=== PATIENT | female | born 1940 | race Caucasian/White ===

== ENCOUNTER → 2018-05-03 | Outpatient (CLI) | payer MEDICARE, BC ==
--- NOTE | 2018-05-03 11:08 | FL ---
EXAMINATION TYPE: FL barium swallow DATE OF EXAM: 05/03/2018 CLINICAL HISTORY: Hoarseness and gastroesophageal reflux. TECHNIQUE: A double contrast esophagram is performed utilizing air and barium. A total of 1 minute and 59 seconds of fluoroscopic time was utilized during procedure. 35 fluoroscopic images were saved. COMPARISON: None FINDINGS: The esophagus shows normal motility and emptying into the stomach in the gravity dependent portion of examination however tertiary contractions are seen in the gravity independent portion of t he examination. No evidence of hiatal hernia or stricture noted. Unprovoked severe gastroesophageal reflux was seen to the cervical esophagus on multiple occasions without the Valsalva maneuver. This i s seen on both the gravity dependent and independent portions of the examination. IMPRESSION: 1. Severe spontaneous gastroesophageal reflux without utilizing the Valsalva maneuver. No focal stric ture or obstruction. 2. 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
[2018-05-03 17:35] LABS: Thyroid Peroxidase Antibodies 928.6 U/mL (0.0-60.0)
== END | disposition home or self-care (01) ==
LOC: RADFLWHC 09:07
PROVIDERS: ATTEND Otolaryngology
DX: K21.9 Gastro-esophageal reflux disease without esophagitis (principal); E04.1 Nontoxic single thyroid nodule; K11.7 Disturbances of salivary secretion
CPT/HCPCS: 36415; 74220; 86235; 86376

== ENCOUNTER 2018-05-14 10:06 | Day surgery (SDC) | payer MEDICARE, BC ==
[2018-05-12 11:42] VITALS: BMI 22.5
[~2018-05-14 10:06] MED LIST: LACTATED RINGERS 1,000 ML IV SCH; LIDOCAINE 1% 20 ML VIAL (10MG/ML) FOR IV START INTRADERMA PRN; MIDAZOLAM 2 MG/2 ML VIAL IV PRN
[2018-05-14 11:32] VITALS: RESP 16; TEMP 97.7
[2018-05-14] MEDS ORDERED: PROPOFOL 10 MG/ML 20 ML VIAL IV ONE (12:19)
--- NOTE | 2018-05-14 12:37 | P.PCN ---
Date of Procedure: 05/14/18 Procedure(s) Performed: BRIEF HISTORY: Patient is a 78-year-old pleasant white female scheduled for an elective colonoscopy as a part of screening for colorectal neoplasia. PROCEDURE PERFORMED: Colonoscopy. PREOPERATIVE DIAGNOSIS: Screening for colon cancer. IV sedation per Anesthesia. PROCEDURE: After informed consent was obtained, the patient, was brought into the endoscopy unit. IV sedation was administered by Anesthesia under continuous monitoring. Digital rectal examination was normal. Initially the Olympus CF- 160 flexible video colonoscope was then inserted in the rectum, gradually advanced into the cecum without any difficulty. Careful examination was performed as the scope was gradually being withdrawn. Ileocecal valve and the appendiceal orifice were visualized and appeared normal. Prep was excellent. Mucosa of the cecum, ascending colon, transverse colon, descending colon, sigmoid colon, and rectum appeared normal. Scattered sigmoid diverticulosis seen. Retroflexion was performed in the rectum and no lesions were seen. The patient tolerated the procedure well. IMPRESSION: Normal-appearing colon from rectum to cecum with no evidence of colorectal neoplasia . Scattered sigmoid diverticulosis. RECOMMENDATIONS: Findings of this examination were discussed with the patient as well as her family. She was advised to be a high-fiber diet and take fiber supplements on a regular basis..
[2018-05-14 12:57] VITALS: BP 136/76; PULSE 74
== END 2018-05-14 14:01 | disposition home or self-care (01) ==
LOC: ORWHC2ENDO 10:06
PROVIDERS: ATTEND Internal Medicine Gastroenterology
DX: Z12.11 Encounter for screening for malignant neoplasm of colon (principal); K57.30 Diverticulosis of large intestine without perforation or abscess without bleeding; Z79.890 Hormone replacement therapy; Z79.899 Other long term (current) drug therapy; Z91.09 Other allergy status, other than to drugs and biological substances
CPT/HCPCS: J2704; G0121; 45378

== ENCOUNTER 2018-11-03 08:49 | Day surgery (SDC) | payer MEDICARE, BC ==
[2018-11-02 09:26] VITALS: BMI 20.3
[~2018-11-03 08:49] MED LIST changes: -MIDAZOLAM 2 MG/2 ML VIAL IV PRN
[2018-11-03 09:27] VITALS: TEMP 98.4
[2018-11-03] MEDS ORDERED: PROPOFOL 10 MG/ML 20 ML VIAL IV ONE (10:18)
--- NOTE | 2018-11-03 10:37 | P.PCN ---
Date of Procedure: 11/03/18 Procedure(s) Performed: BRIEF HISTORY: Patient is a 78-year-old, pleasant, white white female, scheduled for an upper endoscopy as a part of value should of progressive dysphagia to solids for the last 6 months duration. She feels food gets stuck in her throat area. She has been on soft diet. She denies any odynophagia. In view of the symptoms she is scheduled for an upper endoscopy with possible dilation. PROCEDURE PERFORMED: Esophagogastroduodenoscopy with biopsy. PREOPERATIVE DIAGNOSIS: Progressive dysphagia to solids of 6 months duration. IV sedation per anesthesia. PROCEDURE: After informed consent was obtained, the patient was brought into the endoscopy unit. IV sedation was administered by Anesthesia under continuous monitoring. Initially the Olympus GIF-140 video endoscope was inserted into the mouth. Esophagus intubated without any difficulty. It was gradually advanced into the stomach and duodenum and carefully examined. The bulb and the second part of the duodenum appeared normal. The scope at this time was withdrawn to the stomach, adequately insufflated with air, and upon careful examination, mucosa of the antrum had mild gastritis and biopsies were done from this area. The body, cardia and the fundus appeared normal. The scope was then withdrawn into the esophagus. Small sliding Hiatal hernia noted. The GE junction was located at 39 cm from the incisors. The esophagus appeared normal. There were no erosions or ulcerations seen . There was no esophageal stricture. Biopsies were done from the distal esophagus and the patient tolerated the procedure well. IMPRESSION: 1. Normal-appearing esophagus with no evidence of esophagitis or esophageal stricture. 2. Mild antral gastritis 3. Small sliding Hiatal hernia. RECOMMENDATIONS: The findings of this examination were discussed with the patient as well as her family. She was advised to follow with the biopsy results. 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 Recommended a trial of Prilosec 20 mg daily for 6 weeks to see for any improvement in her symptoms. If she still has persistent dysphagia she can follow up in office for further workup including esophageal manometry to rule out esophageal motility disorders. .
[2018-11-03 10:52] VITALS: BP 150/74; PULSE 74; RESP 18
== END 2018-11-03 11:17 | disposition home or self-care (01) ==
LOC: ORWHC2ENDO 08:49
PROVIDERS: ATTEND Internal Medicine Gastroenterology
DX: R13.10 Dysphagia, unspecified (principal); K29.50 Unspecified chronic gastritis without bleeding; K21.9 Gastro-esophageal reflux disease without esophagitis; K44.9 Diaphragmatic hernia without obstruction or gangrene; E07.9 Disorder of thyroid, unspecified; Z79.1 Long term (current) use of non-steroidal anti-inflammatories (NSAID); Z79.890 Hormone replacement therapy; Z79.899 Other long term (current) drug therapy; Z88.8 Allergy status to other drugs, medicaments and biological substances
CPT/HCPCS: 88305; 43239; J2704

== ENCOUNTER 2020-03-30 20:30 | Inpatient (IN) | payer MEDICARE, BC ==
--- NOTE | 2020-03-30 20:47 | ED ---
SOB HPI - General Chief Complaint: Shortness of Breath Stated Complaint: SOB Time Seen by Provider: 03/30/20 20:32 Source: patient, EMS, RN notes reviewed, old records reviewed Mode of arrival: EMS Limitations: no limitations - History of Present Illness Initial Comments: This is a 79-year-old female DF she presents today for evaluation of CHF, patient sent in transfer for shortness of breath elevated BNP troponin edema and x-ray patient continues to complain of shortness of breath although improved currently. No chest pain. She denies prior history of having CHF is a diagnosis patient says symptoms about and off for the past month of some chest pain and shocks earlier into today MD Complaint: shortness of breath, anxiety -: month(s) Severity: mild Severity scale (1-10): 3 Consistency: intermittent Improves With: nothing Worsens With: nothing Known History Of: congestive heart failure Associated Symptoms: chest pain (Occasional), palpitations Treatments Prior to Arrival: none - Related Data Home Medications Medication Instructions Recorded Confirmed Kelp 1 each PO BID 12/27/14 11/02/18 Levothyroxine Sodium [Synthroid] 125 mcg PO DAILY 12/27/14 11/03/18 Vitamin E 400 unit PO BID 12/27/14 11/03/18 Ascorbic Acid [Vitamin C] 1,000 mg PO DAILY 11/02/18 11/02/18 Celecoxib [CeleBREX] 200 mg PO DAILY PRN 11/02/18 11/03/18 Docusate [Colace] 100 mg PO DAILY 11/02/18 11/03/18 Fish Oil/Dha/Epa [Fish Oil 1,200 1 each PO BID 11/02/18 11/02/18 mg Fish Oil] Glucosamine Sulfate 1,500 mg PO BID 11/02/18 11/03/18 Magnesium With Zinc 1 dose PO DAILY 11/02/18 11/03/18 Omeprazole 20 mg PO TID-W/MEALS 11/02/18 11/03/18 Pyridoxine [Vitamin B-6] 50 mg PO DAILY 11/02/18 11/02/18 Vitamin D 1.25 dose PO DAILY 11/02/18 11/02/18 Allergies Allergy/AdvReac Type Severity Reaction Status Date / Time niacin Allergy Anaphylaxis Verified 11/02/18 08:59 Review of Systems ROS Statement: Those systems with pertinent positive or pertinent negative responses have been documented in the HPI. ROS Other: All systems not noted in ROS Statement are negative. Past Medical History Past Medical History: GERD/Reflux, Osteoarthritis (OA), Thyroid Disorder Additional Past Medical History / Comment(s): BALANCE PROBLEM, CHRONIC CONSTIPATION., ANIMAL FREE DIET- NO MEAT OR DAIRY.,HOARSE VOICE- STATES FEELS LIKE THROAT IS SWOLLEN. History of Any Multi-Drug Resistant Organisms: None Reported Past Surgical History: Back Surgery, Orthopedic Surgery Additional Past Surgical History / Comment(s): BACK SURGERY (), NECK SURGERY (), BILATERAL SHOULDER SURGERY X2, past tilt table test Past Anesthesia/Blood Transfusion Reactions: No Reported Reaction Past Psychological History: Anxiety, Depression Smoking Status: Never smoker Past Alcohol Use History: None Reported Past Drug Use History: None Reported - Past Family History Mother Family Medical History: Coronary Artery Disease (CAD) Additional Family Medical History / Comment(s): -constricted bowel problem Father Family Medical History: Cancer, Myocardial Infarction ([place]) Additional Family Medical History / Comment(s): lung cancer. from "heart attack" General Exam General appearance: alert, in no apparent distress Head exam: Present: atraumatic, normocephalic, normal inspection Eye exam: Present: normal appearance, PERRL, EOMI. Absent: scleral icterus, conjunctival injection, periorbital swelling ENT exam: Present: normal exam, mucous membranes moist Neck exam: Present: normal inspection. Absent: tenderness, meningismus, lymphadenopathy Respiratory exam: Present: rhonchi, decreased breath sounds, prolonged expiratory. Absent: normal lung sounds bilaterally, respiratory distress, wheezes, rales, stridor Cardiovascular Exam: Present: regular rate, normal rhythm, normal heart sounds. Absent: systolic murmur, diastolic murmur, rubs, gallop, clicks GI/Abdominal exam: Present: soft, normal bowel sounds. Absent: distended, tenderness, guarding, rebound, rigid Extremities exam: Present: normal inspection, full ROM, normal capillary refill. Absent: tenderness, pedal edema, joint swelling, calf tenderness Back exam: Present: normal inspection Neurological exam: Present: alert, oriented X3, CN II-XII intact Psychiatric exam: Present: normal affect, normal mood Skin exam: Present: warm, dry, intact, normal color. Absent: rash Course Vital Signs 03/30/20 03/30/20 20:37 20:46 Temperature 98.1 F Pulse Rate 87 Respiratory 16 16 Rate Blood Pressure 144/85 O2 Sat by Pulse 96 Oximetry - Reevaluation(s) Reevaluation #1: 03/30/20 21:00 Medical record transferring record is reviewed - Consultations Consultation #1: Spoke with Dr. Dale agrees for admission Medical Decision Making - Medical Decision Making 79 female female to the ER for evaluation of CHF and chest pain. New-onset CHF was found at outside hospital, patient is in no acute distress currently. Denying current chest pain and resting comfortably - EKG Data -: EKG Interpreted by Me (EKG shows a flutter rate of 52, QRS 94 QTC 399) Disposition Clinical Impression: Congestive heart failure, Acute pulmonary edema, Chest pain Disposition: ADMITTED IP TO THIS HOSP Condition: Good Is patient prescribed a controlled substance at d/c from ED?: No Referrals: Pooja Bob MD [Primary Care Provider] - 1-2 days
[2020-03-30] MEDS: FUROSEMIDE 10 MG/ML 4 ML VIAL IV SCH (21:42)
[2020-03-30] MEDS ORDERED: ONDANSETRON 4 MG/2 ML VIAL IVP PRN (21:49)
[2020-03-30] MEDS ORDERED: MORPHINE SULFATE 4 MG/ML SYRINGE IVP PRN (21:49)
[2020-03-30] MEDS ORDERED: ONDANSETRON 4 MG/2 ML VIAL IVP STA (21:49)
[2020-03-30] MEDS ORDERED: MORPHINE SULFATE 4 MG/ML SYRINGE IVP STA (21:49)
[2020-03-31] MEDS: FUROSEMIDE 10 MG/ML 4 ML VIAL IV SCH (08:42)
[2020-03-31] MEDS ORDERED: ENOXAPARIN 40 MG/0.4 ML SYRINGE SQ SCH (09:00)
[2020-03-31] MEDS ORDERED: ACETAMINOPHEN TAB 325 MG TAB PO PRN (09:22)
--- NOTE | 2020-03-31 10:12 | P.CRDCN ---
History of Present Illness Consult date: 03/31/20 Consult reason: congestive heart failure History of present illness: History of present illness: This is a 79-year-old female patient with past medical history of newly diagnosed atrial fibrillation, gastroesophageal reflux disease, vertigo, osteoarthritis. The patient was previously seen by Dr. 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 Florinef was recommended as well as dual-chamber atrial pacer. Patient states she declined use of Florinef and utilized sodium and it was subsequently determined the patient did not need a pacemaker implantation. Patient was seen by Dr. Matson on Thursday last week and started on eliquis and beta stevan for new onset atrial fibrillation. Patient developed lightheadedness and dizziness with intermittent shortness of breath. No syncopal episode. No orthopnea or PND. Patient contacted cardiology office and was recommended to go to the emergency center for evaluation. Patient initially presented to [facility] where she underwent a CAT scan of brain that showed no acute intracranial abnormality. Chest x-ray showed no pneumo thorax, no acute infiltrate, no significant pleural effusion. Troponin was 0.012. Hemoglobin 13.9 and platelet count 149 otherwise metabolic panel essentially normal. Magnesium 2.0, phosphorus 3.7. ProBNP 2320. Urinalysis negative for infection. She was given 1 dose of Reglan. She was started on IV fluids and there is concern the patient had elevated BNP and was in heart failure as she presented with a pulse ox of 88% on room air with repeat of 98% on 2 L nasal cannula. Patient was complaining of headache and nausea and took a dose of Benadryl. Patient was then transferred to [facility]. Patient is status post IV Lasix. She states she did have some lower extremity edema which is resolved. Patient's main concern is a headache which she has had prolonged period of time and had previous workup with Dr. Marily Dye and referred to Dr. Jasson Park. Dr. Jasson Rendon wanted her to go to [facility] but she did not want to do further workup. Patient has had worsening headache for the past month and significantly worse this week along with nausea. Review Of Systems: Constitutional: No fever, no chills. No weakness, fatigue or lethargy. EENT: No blurred vision or double vision, no loss of vision. No loss of Hearing, no dizziness. No nasal drainage or congestion. No epistaxis. No sore throat. Reports headache Lungs: No shortness of breath-resolved, cough, no sputum production. No wheezing. Cardiovascular: No chest pain, no lower extremity edema-resolved. No palpitations. No paroxysmal nocturnal dyspnea. No orthopnea. No lightheadedness or dizziness. No syncopal episodes. Abdominal: No abdominal pain. Reports nausea without vomiting. No diarrhea. No constipation. No bloody or tarry stools.. No loss of appetite. Genitourinary: No dysuria, increased frequency, urgency. No urinary retention. Musculoskeletal: No myalgias. No muscle weakness, no gait dysfunction, no frequent falls. No back pain. No neck pain. Integumentary: No wounds, no lesions. No rash or pruritus. No unusual bruising. Neurologic: No aphasia. No facial droop. No change in mentation. No head injury. No headache. No paralysis. No paresthesia. Psychiatric: No depression. No anxiety. No mood swings. Endocrine: No abnormal blood sugars. No weight change. No excessive sweating or thirst. No weight change. Physical examination: Gen: This is a thin 79-year-old female. She is sitting on the edge of the bed and appears to be comfortable and in no acute distress. VS: Afebrile, heart rate 63, blood pressure 133/86, pulse ox 97% on room air HEENT: Head is atraumatic, normocephalic. Pupils equal, round. Sclerae is anicteric. NECK: Supple. No JVD. No lymphadenopathy. No thyromegaly. LUNGS: Clear to auscultation. No wheezes or rhonchi. No intercostal retractions. HEART: Regular rate and rhythm. No murmur. ABDOMEN: Soft. Bowel sounds are present. No masses. No tenderness. EXTREMITIES: No pedal edema. No calf tenderness. Dorsalis pedis +2 bilaterally. NEUROLOGICAL: Patient is awake, alert and oriented x3. Cranial nerves 2 through 12 are grossly intact. Assessment: Shortness of breath rule out cardiac etiology Evaluate for possible heart failure New diagnosis of atrial fibrillation, rate controlled Headache and nausea, chronic Gastroesophageal reflux disease Plan: Hold metoprolol for now as patient heart rate of 49 during the night Patient will be resumed on eliquis 5 mg twice daily and discontinue Lovenox Repeat troponin and obtain the following lab work: D-dimer, CMP, CBC, BNP, TSH and free T4 Echocardiogram and Doppler studies to assess cardiac structure and function Low-dose [place] added for headache Further recommendations to follow based upon clinical course Thank you kindly for this consultation Nurse practitioner note has been reviewed, I agree with documented findings and plan of care. Patient was seen and examined. Past Medical History Past Medical History: GERD/Reflux, Osteoarthritis (OA), Thyroid Disorder Additional Past Medical History / Comment(s): BALANCE PROBLEM, CHRONIC CONSTIPATION., ANIMAL FREE DIET- NO MEAT OR DAIRY.,HOARSE VOICE- STATES FEELS LIKE THROAT IS SWOLLEN. History of Any Multi-Drug Resistant Organisms: None Reported Past Surgical History: Back Surgery, Orthopedic Surgery Additional Past Surgical History / Comment(s): BACK SURGERY (), NECK SURGERY (), BILATERAL SHOULDER SURGERY X2, past tilt table test Past Anesthesia/Blood Transfusion Reactions: No Reported Reaction Past Psychological History: Anxiety, Depression Smoking Status: Never smoker Past Alcohol Use History: None Reported Past Drug Use History: None Reported - Past Family History Mother Family Medical History: Coronary Artery Disease (CAD) Additional Family Medical History / Comment(s): -constricted bowel problem Father Family Medical History: Cancer, Myocardial Infarction ([place]) Additional Family Medical History / Comment(s): lung cancer. from "heart attack" Medications and Allergies Home Medications Medication Instructions Recorded Confirmed Type Kelp 1 tab PO BID 12/27/14 03/30/20 History Celecoxib [CeleBREX] 200 mg PO DAILY PRN 11/02/18 03/30/20 History Pyridoxine [Vitamin B-6] 50 mg PO Q48H 11/02/18 03/30/20 History ALPRAZolam [Xanax] 0.125 mg PO DAILY PRN 03/30/20 03/30/20 History ALPRAZolam [Xanax] 0.25 mg PO HS PRN 03/30/20 03/30/20 History Apixaban [Eliquis] 5 mg PO BID 03/30/20 03/30/20 History Biotin 5 mg PO DAILY 03/30/20 03/30/20 History Escitalopram [Lexapro] 10 mg PO DAILY 03/30/20 03/30/20 History Levothyroxine Sodium 125 mcg PO DAILY 03/30/20 03/30/20 History Magnesium(Unknown Dose) 1 tab PO DAILY 03/30/20 03/30/20 History Metoprolol Succinate (ER) [Toprol 50 mg PO DAILY 03/30/20 03/30/20 History Xl] Potassium Gluconate 99 mg PO DAILY 03/30/20 03/30/20 History Vitamin A 2400mg 2,400 mg PO DAILY 03/30/20 03/30/20 History Vitamin B-12(Unknown Dose) 1 tab PO Q48H 03/30/20 03/30/20 History Vitamin C(Unknown Dose) 1 tab PO DAILY 03/30/20 03/30/20 History Vitamin D3(Unknown Dose) 1 tab PO DAILY 03/30/20 03/30/20 History Allergies Allergy/AdvReac Type Severity Reaction Status Date / Time niacin Allergy Anaphylaxis Verified 03/30/20 21:17 Physical Exam Vitals: Vital Signs Temp Pulse Pulse Resp BP BP Pulse Ox 03/31/20 08:00 97.4 F L 63 16 133/86 97 03/31/20 04:00 98.1 F 49 L 18 115/87 97 03/30/20 23:25 98.0 F 88 18 144/87 94 L 03/30/20 21:44 97.8 F 71 16 147/76 98 03/30/20 20:46 16 03/30/20 20:37 98.1 F 87 16 144/85 96 Intake and Output 03/30/20 03/31/20 03/31/20 22:59 06:59 14:59 Other: Voiding Method Toilet Toilet # Voids 1 Weight 65.317 kg 63.8 kg Results Current Medications Generic Name Dose Route Start Last Admin Trade Name Freq PRN Reason Stop Dose Admin Enoxaparin Sodium 40 mg 03/31/20 09:00 03/31/20 08:42 Lovenox SQ 40 mg DAILY KENDRA Administration Furosemide 40 mg 03/30/20 21:00 03/31/20 08:42 Lasix IV 40 mg Q12H KENDRA Administration Morphine Sulfate 4 mg 03/30/20 21:49 Morphine Sulfate (Inj) IVP Q4HR PRN Pain Ondansetron HCl 4 mg 03/30/20 21:49 Zofran IVP Q6HR PRN Nausea And Vomiting Intake and Output 03/30/20 03/31/20 03/31/20 22:59 06:59 14:59 Other: Voiding Method Toilet Toilet # Voids 1 Weight 65.317 kg 63.8 kg
[2020-03-31 10:36] LABS: HCT 46.9 % (34.0-46.0); MCH 34.3 pg (25.0-35.0); MCV 107.3 fL (80.0-100.0); Macrocytosis Moderate; Platelet Count 168 k/uL (150-450); RBC 4.37 m/uL (3.80-5.40); RDW 13.1 % (11.5-15.5); WBC 4.1 k/uL (3.8-10.6)
[2020-03-31 10:53] LABS: ALT 66 U/L (4-34); AST 49 U/L (14-36); African American GFR (CKD) >90 (>60 ml/min/1.73 sqM); Albumin 4.6 g/dL (3.5-5.0); Alkaline Phosphatase 81 U/L (38-126); Anion Gap 7 mmol/L; Blood Urea Nitrogen 16 mg/dL (7-17); Calcium 9.5 mg/dL (8.4-10.2); Carbon Dioxide 38 mmol/L (22-30); Chloride 95 mmol/L (98-107); Glucose 105 mg/dL (74-99); Non-African American GFR(CKD) 89 (>60 ml/min/1.73 sqM); Potassium 3.9 mmol/L (3.5-5.1); Sodium 140 mmol/L (137-145); Total Bilirubin 1.2 mg/dL (0.2-1.3); Total Protein 7.3 g/dL (6.3-8.2)
[2020-03-31 10:56] VITALS: BMI 21.4
[2020-03-31] MEDS: HYDROcodone/APAP 5-325MG 1 EACH TAB PO PRN ×2 (11:04→19:37)
[2020-03-31] MEDS ORDERED: ALPRAZolam 0.25 MG TAB PO PRN ×2 (11:48)
[2020-03-31] MEDS ORDERED: MELOXICAM 7.5 MG TAB PO PRN (11:48)
--- NOTE | 2020-03-31 11:51 | P.HPIM ---
History of Present Illness H&P Date: 03/31/20 Chief Complaint: Shortness of breath Oxana Wise, is a 79-year-old female, patient of Dr. Bob, who was recently diagnosed with atrial fibrillation by Dr. Matson, she was started on metoprolol and Eliquis, patient developed dizziness lightheadedness and shortness of breat h, she called the cardiology office and was advised to go to emergency room, she went to [facility] [place] emergency room, her evaluation was suggestive of acute congestive heart failure exacerbation she had elevated BNP at 2320 her chest x- ray revealed evidence of pulmonary congestion pulse ox was 88% on room air, computed tomography scan of the brain was done and did not reveal any acute abnormality, urine analysis was negative for any evidence of infection , patient was transferred to [facility] for further evaluation, she was admitted to telemetry floor and cardiology consultation was requested. EKG at [facility] revealed evidence of atrial flutter with slow heart rate of 49. Patient was seen and examined on the telemetry floor, she is complaining of headache and dizziness, otherwise she denies any complaints at this time that is no fever or chills no headache or dizziness no chest pain no shortness of breath no cough no nausea or vomiting no abdominal pain no diarrhea no blood in the stools no burning with urination no frequency or urgency and no hematuria. Past Medical History Past Medical History: GERD/Reflux, Osteoarthritis (OA), Thyroid Disorder Additional Past Medical History / Comment(s): BALANCE PROBLEM, CHRONIC CONSTIPATION., ANIMAL FREE DIET- NO MEAT OR DAIRY.,HOARSE VOICE- STATES FEELS LIKE THROAT IS SWOLLEN. History of Any Multi-Drug Resistant Organisms: None Reported Past Surgical History: Back Surgery, Orthopedic Surgery Additional Past Surgical History / Comment(s): BACK SURGERY (), NECK SURGERY (), BILATERAL SHOULDER SURGERY X2, past tilt table test Past Anesthesia/Blood Transfusion Reactions: No Reported Reaction Past Psychological History: Anxiety, Depression Smoking Status: Never smoker Past Alcohol Use History: None Reported Past Drug Use History: None Reported - Past Family History Mother Family Medical History: Coronary Artery Disease (CAD) Additional Family Medical History / Comment(s): -constricted bowel problem Father Family Medical History: Cancer, Myocardial Infarction (VA) Additional Family Medical History / Comment(s): lung cancer. from "heart attack" Medications and Allergies Home Medications Medication Instructions Recorded Confirmed Type Kelp 1 tab PO BID 12/27/14 03/30/20 History Celecoxib [CeleBREX] 200 mg PO DAILY PRN 11/02/18 03/30/20 History Pyridoxine [Vitamin B-6] 50 mg PO Q48H 11/02/18 03/30/20 History ALPRAZolam [Xanax] 0.125 mg PO DAILY PRN 03/30/20 03/30/20 History ALPRAZolam [Xanax] 0.25 mg PO HS PRN 03/30/20 03/30/20 History Apixaban [Eliquis] 5 mg PO BID 03/30/20 03/30/20 History Biotin 5 mg PO DAILY 03/30/20 03/30/20 History Escitalopram [Lexapro] 10 mg PO DAILY 03/30/20 03/30/20 History Levothyroxine Sodium 125 mcg PO DAILY 03/30/20 03/30/20 History Magnesium(Unknown Dose) 1 tab PO DAILY 03/30/20 03/30/20 History Metoprolol Succinate (ER) [Toprol 50 mg PO DAILY 03/30/20 03/30/20 History Xl] Potassium Gluconate 99 mg PO DAILY 03/30/20 03/30/20 History Vitamin A 2400mg 2,400 mg PO DAILY 03/30/20 03/30/20 History Vitamin B-12(Unknown Dose) 1 tab PO Q48H 03/30/20 03/30/20 History Vitamin C(Unknown Dose) 1 tab PO DAILY 03/30/20 03/30/20 History Vitamin D3(Unknown Dose) 1 tab PO DAILY 03/30/20 03/30/20 History Allergies Allergy/AdvReac Type Severity Reaction Status Date / Time niacin Allergy Anaphylaxis Verified 03/30/20 21:17 Physical Exam Vitals: Vital Signs Temp Pulse Pulse Resp BP BP Pulse Ox 03/31/20 08:00 97.4 F L 63 16 133/86 97 03/31/20 04:00 98.1 F 49 L 18 115/87 97 03/30/20 23:25 98.0 F 88 18 144/87 94 L 03/30/20 21:44 97.8 F 71 16 147/76 98 03/30/20 20:46 16 03/30/20 20:37 98.1 F 87 16 144/85 96 Intake and Output 03/30/20 03/31/20 03/31/20 22:59 06:59 14:59 Other: Voiding Method Toilet Toilet # Voids 1 Weight 65.317 kg 63.8 kg 63.8 kg In general patient is alert and oriented 3 in no apparent distress HEENT head normocephalic and atraumatic Neck is supple no JVD no goiter no lymphadenopathy Chest exam reveals a few scattered crackles no wheezing Cardiac exam reveals regular heart sounds no gallops no murmurs Abdomen is soft nontender no organomegaly with normal bowel sounds Extremity exam reveals no edema no cyanosis or clubbing Neurological examination reveals no gross focal deficit Results CBC & Chem 7: 03/31/20 10:17 03/31/20 10:17 Labs: Abnormal Lab Results - Last 24 Hours (Table) 03/31/20 03/31/20 03/31/20 Range/Units 10:17 10:17 10:17 Hct 46.9 H (34.0-46.0) % MCV 107.3 H (80.0-100.0) fL D-Dimer 0.62 H (<0.60) mg/L FEU Chloride 95 L (98-107) mmol/L Carbon Dioxide 38 H (22-30) mmol/L Glucose 105 H (74-99) mg/dL AST 49 H (14-36) U/L ALT 66 H (4-34) U/L TSH 5.260 H (0.465-4.680) mIU/L Assessment and Plan Plan: 1. Acute congestive heart failure exacerbation, as evidenced by chest x-ray and elevated BNP and clinical shortness of breath and decreased pulse ox to 88% on room air, it's not clear yet whether this is systolic or diastolic, echocardiogram was ordered results are still pending. 2. Atrial flutter with slow heart rate, cardiology are following, metoprolol was discontinued, patient restarted on Eliquis. 3. Evidence of hypothyroidism with elevated TSH at 5.26 patient is maintained on Synthroid 125 g daily, will assess with patient whether she was taking that on a regular basis or if the dose needs to be increased 4. Slightly elevated liver enzymes may be related to congestion, will monitor liver enzymes 5. Gastroesophageal reflux disease Will add Protonix Will follow during this admission for medical management please see orders
--- NOTE | 2020-03-31 11:58 | XR ---
EXAMINATION TYPE: XR chest 1V portable DATE OF EXAM: 03/31/2020 HISTORY: Shortness of breath. COMPARISON: None. TECHNIQUE: Single view of the chest is submitted. FINDINGS: Demonstrated are scattered senescent parenchymal change. There is no evidence for focal infiltrate. The heart is stable. Hilar and mediastinal structures are within normal limits. Degenerative changes are seen of the dorsal spine. IMPRESSION: 1. Chronic changes without evidence for acute pulmonary disease.
[2020-03-31 12:46] LABS: T4, Free (Free Thyroxine) 1.05 ng/dL (0.78-2.19)
[2020-03-31] MEDS: ESCITALOPRAM 10 MG TAB PO SCH (14:22)
[2020-03-31] MEDS: APIXABAN 5 MG TAB PO SCH (19:37)
[2020-04-01 03:45] VITALS: TEMP 98
[2020-04-01 06:26] LABS: Basophils % (A) 1 %; Eosinophils # (A) 0.1 k/uL (0-0.7); Eosinophils % (A) 3 %; HCT 46.1 % (34.0-46.0); HGB 14.6 gm/dL (11.4-16.0); Lymphocytes # (A) 0.9 k/uL (1.0-4.8); Lymphocytes % (A) 23 %; MCH 33.8 pg (25.0-35.0); MCHC 31.8 g/dL (31.0-37.0); MCV 106.3 fL (80.0-100.0); Macrocytosis Moderate; Mean Platelet Volume 7.9; Monocytes # (A) 0.3 k/uL (0-1.0); Monocytes % (A) 8 %; Neutrophils # (A) 2.4 k/uL (1.3-7.7); Neutrophils % (A) 63 %; Platelet Count 161 k/uL (150-450); RBC 4.34 m/uL (3.80-5.40); RDW 12.8 % (11.5-15.5); WBC 3.9 k/uL (3.8-10.6)
[2020-04-01] MEDS ORDERED: LEVOTHYROXINE 125 MCG TAB PO SCH (06:30)
[2020-04-01 07:18] LABS: ALT 51 U/L (4-34); AST 37 U/L (14-36); African American GFR (CKD) >90 (>60 ml/min/1.73 sqM); Albumin 3.9 g/dL (3.5-5.0); Alkaline Phosphatase 76 U/L (38-126); Anion Gap 7 mmol/L; Blood Urea Nitrogen 20 mg/dL (7-17); Calcium 9.1 mg/dL (8.4-10.2); Carbon Dioxide 35 mmol/L (22-30); Chloride 97 mmol/L (98-107); Glucose 99 mg/dL (74-99); Non-African American GFR(CKD) 85 (>60 ml/min/1.73 sqM); Potassium 3.7 mmol/L (3.5-5.1); Sodium 139 mmol/L (137-145); Total Bilirubin 0.9 mg/dL (0.2-1.3); Total Protein 6.3 g/dL (6.3-8.2)
--- NOTE | 2020-04-01 08:00 | ECHOF ---
Referral Reason:LVF MEASUREMENTS -------- HEIGHT: 172.7 cm WEIGHT: 63.5 kg BP: 133/86 RVIDd: 3.5 cm (< 3.3) IVSd: 1.4 cm (0.6 - 1.1) LVIDd: 4.8 cm (3.9 - 5.3) LVPWd: 1.5 cm (0.6 - 1.1) IVSs: 1.8 cm LVIDs: 3.4 cm LVPWs: 1.7 cm LAESV Index (A-L): 28.61 ml/m Ao Diam: 3.0 cm (2.0 - 3.7) AV Cusp: 2.0 cm (1.5 - 2.6) MV EXCURSION: 20.954 mm (> 18.000) MV EF SLOPE: 53 mm/s (70 - 150) EPSS: 0.9 cm RAP: 5.00 mmHg RVSP: 27.93 mmHg FINDINGS -------- This was a technically adequate study. The left ventricular size is normal. There is moderate concentric left ventricular hypertrophy. O verall left ventricular systolic function is mildly impaired with, an EF between 45 - 50 %. Left ve ntricular fillimg pressure cannot be estimated due to Atrial fibrillation. The right ventricle is mildly enlarged. LA is midly dilated 29-33ml/m2. The right atrium is mildly enlarged. Interatrial and interventricular septum intact. The aortic valve is trileaflet and appears structurally normal. There is no evidence of aortic regu rgitation. There is no evidence of aortic stenosis. Qwxa-ks-pbfqvizh mitral regurgitation is present. Mild tricuspid regurgitation present. There is no evidence of pulmonary hypertension. The right v entricular systolic pressure, as measured by Doppler, is 27.93mmHg. Trace/mild (physiologic) pulmonic regurgitation. The aortic root size is normal. The inferior vena cava is mildly dilated. There is no pericardial effusion. CONCLUSIONS -------- 1. This was a technically adequate study. 2. The left ventricular size is normal. 3. There is moderate concentric left ventricular hypertrophy. 4. Overall left ventricular systolic function is mildly impaired with, an EF between 45 - 50 %. 5. Left ventricular fillimg pressure cannot be estimated due to Atrial fibrillation. 6. The right ventricle is mildly enlarged. 7. LA is midly dilated 29-33ml/m2. 8. The right atrium is mildly enlarged. 9. Interatrial and interventricular septum intact. 10. The aortic valve is trileaflet and appears structurally normal. 11. There is no evidence of aortic regurgitation. 12. There is no evidence of aortic stenosis. 13. Jlwv-ka-zgpelypt mitral regurgitation is present. 14. Mild tricuspid regurgitation present. 15. There is no evidence of pulmonary hypertension. 16. The right ventricular systolic pressure, as measured by Doppler, is 27.93mmHg. 17. Trace/mild (physiologic) pulmonic regurgitation. 18. The aortic root size is normal. 19. The inferior vena cava is mildly dilated. 20. There is no pericardial effusion. INTERNIST MEDICAL DOCTOR MD: Jolie Villasenor RDCS
[2020-04-01] MEDS ORDERED: NON FORMULARY DRUG (Biotin [Biotin] 5 MG) PO SCH (09:00)
[2020-04-01] MEDS: APIXABAN 5 MG TAB PO SCH (09:29)
[2020-04-01] MEDS: ESCITALOPRAM 10 MG TAB PO SCH (09:29)
[2020-04-01] MEDS ORDERED: FUROSEMIDE 20 MG TAB PO SCH (10:45)
[2020-04-01] MEDS ORDERED: POTASSIUM CHLORIDE ER 10 MEQ TAB.ER.PRT PO SCH (10:45)
[2020-04-01 10:47] VITALS: BP 96/54; PULSE 70; RESP 19
--- NOTE | 2020-04-01 11:00 | P.DS ---
Providers Date of admission: 03/30/20 20:58 Expected date of discharge: 04/01/20 Attending physician: Sky Dale Consults: 03/30/20 20:56 Consult Physician Routine Consulting Provider: Tigist Low Consult Reason/Comments: chf Do you want consulting provider notified?: Yes Primary care physician: Pooja Bob [facility] Course: Diagnosis on discharge: 1. Acute congestive heart failure exacerbation, as evidenced by chest x-ray and elevated BNP and clinical shortness of breath and decreased pulse ox to 88% on room air, likely diastolic, echocardiogram revealed normal ejection fraction 2. Atrial flutter with slow heart rate, cardiology are following, metoprolol was discontinued, patient restarted on Eliquis. 3. Evidence of hypothyroidism with elevated TSH at 5.26 patient is maintained on Synthroid 125 g daily, will assess with patient whether she was taking that on a regular basis or if the dose needs to be increased 4. Slightly elevated liver enzymes may be related to congestion, will monitor liver enzymes 5. Gastroesophageal reflux disease Will add Protonix Hospital course: Oxana Wise, is a 79-year-old female, patient of Dr. Bob, who was recently diagnosed with atrial fibrillation by Dr. Matson, she was started on metoprolol and Eliquis, patient developed dizziness lightheadedness and shortness of breath, she called the cardiology office and was advised to go to emergency room, she went to [facility] emergency room, her evaluation was suggestive of acute congestive heart failure exacerbation she had elevated BNP at 2320 her chest x-ray revealed evidence of pulmonary congestion pulse ox was 88% on room air, computed tomography scan of the brain was done and did not reveal any acute abnormality, urine analysis was negative for any evidence of infection , patient was transferred to [facility] for further evaluation, she was admitted to telemetry floor and cardiology consultation was requested. EKG at [facility] revealed evidence of atrial flutter with slow heart rate of 49. Patient was seen and examined on the telemetry floor, she is complaining of headache and dizziness, otherwise she denies any complaints at this time that is no fever or chills no headache or dizziness no chest pain no shortness of breath no cough no nausea or vomiting no abdominal pain no diarrhea no blood in the stools no burning with urination no frequency or urgency and no hematuria. On 04/01/2020 patient was seen and examined on the medical floor she is alert and oriented 3 in no apparent distress shortness of breath has resolved, TSH is high at 5.26, dose of Synthroid was increased 137 g daily, Lasix 20 mg by mouth daily was added to her regimen and potassium chloride 10 mEq was added to regimen, patient was evaluated by cardiology Dr. Angella Matson and was cleared for discharge, patient will continue on Eliquis 5 mg by mouth twice daily, metoprolol 50 mg daily was discontinued due to bradycardia, patient will follow up with her primary care physician Dr. Bob within one week, she will also follow-up with cardiology within 1 week Patient Condition at Discharge: Good Plan - Discharge Summary Discharge Rx Participant: No New Discharge Prescriptions: New Furosemide [Lasix] 20 mg PO DAILY #30 tab Potassium Chloride ER [K-Dur 10] 10 meq PO DAILY tab.er.prt Furosemide [Lasix] 20 mg PO DAILY tab Levothyroxine Sodium [Synthroid] 137 mcg PO DAILY@0630 tab Continue Kelp 1 tab PO BID Pyridoxine [Vitamin B-6] 50 mg PO Q48H Celecoxib [CeleBREX] 200 mg PO DAILY PRN PRN Reason: Pain Vitamin A 2400mg 2,400 mg PO DAILY Magnesium(Unknown Dose) 1 tab PO DAILY Biotin 5 mg PO DAILY Vitamin D3(Unknown Dose) 1 tab PO DAILY Vitamin B-12(Unknown Dose) 1 tab PO Q48H Levothyroxine Sodium 125 mcg PO DAILY Escitalopram [Lexapro] 10 mg PO DAILY Apixaban [Eliquis] 5 mg PO BID ALPRAZolam [Xanax] 0.25 mg PO HS PRN PRN Reason: Anxiety ALPRAZolam [Xanax] 0.125 mg PO DAILY PRN PRN Reason: Anxiety Vitamin C(Unknown Dose) 1 tab PO DAILY Discontinued Potassium Gluconate 99 mg PO DAILY Metoprolol Succinate (ER) [Toprol Xl] 50 mg PO DAILY Discharge Medication List Kelp 1 tab PO BID 12/27/14 [History] Celecoxib [CeleBREX] 200 mg PO DAILY PRN 11/02/18 [History] Pyridoxine [Vitamin B-6] 50 mg PO Q48H 11/02/18 [History] ALPRAZolam [Xanax] 0.125 mg PO DAILY PRN 03/30/20 [History] ALPRAZolam [Xanax] 0.25 mg PO HS PRN 03/30/20 [History] Apixaban [Eliquis] 5 mg PO BID 03/30/20 [History] Biotin 5 mg PO DAILY 03/30/20 [History] Escitalopram [Lexapro] 10 mg PO DAILY 03/30/20 [History] Levothyroxine Sodium 125 mcg PO DAILY 03/30/20 [History] Magnesium(Unknown Dose) 1 tab PO DAILY 03/30/20 [History] Vitamin A 2400mg 2,400 mg PO DAILY 03/30/20 [History] Vitamin B-12(Unknown Dose) 1 tab PO Q48H 03/30/20 [History] Vitamin C(Unknown Dose) 1 tab PO DAILY 03/30/20 [History] Vitamin D3(Unknown Dose) 1 tab PO DAILY 03/30/20 [History] Furosemide [Lasix] 20 mg PO DAILY tab 04/01/20 [Rx] Furosemide [Lasix] 20 mg PO DAILY #30 tab 04/01/20 [Rx] Levothyroxine Sodium [Synthroid] 137 mcg PO DAILY@0630 tab 04/01/20 [Rx] Potassium Chloride ER [K-Dur 10] 10 meq PO DAILY tab.er.prt 04/01/20 [Rx] Follow up Appointment(s)/Referral(s): Pooja Bob MD [Primary Care Provider] - 1-2 days Alexander Matson MD [STAFF PHYSICIAN] - 1 Week
--- NOTE | 2020-04-01 14:11 | P.PN ---
Subjective Progress Note Date: 04/01/20 History of present illness: This is a 79-year-old female patient with past medical history of newly diagnosed atrial fibrillation, gastroesophageal reflux disease, vertigo, osteoarthritis. The patient was previously seen by Dr. 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 Florinef was recommended as well as dual-chamber atrial pacer. Patient states she declined use of Florinef and utilized sodium and it was subsequently determined the patient did not need a pacemaker implantation. Patient was seen by Dr. Matson on Thursday last week and started on eliquis and beta stevan for new onset atrial fibrillation. Patient developed lightheadedness and dizziness with intermittent shortness of breath. No syncopal episode. No orthopnea or PND. Patient contacted cardiology office and was recommended to go to the emergency center for evaluation. Patient initially presented to [facility] where she underwent a CAT scan of brain that showed no acute intracranial abnormality. Chest x-ray showed no pneumo thorax, no acute infiltrate, no significant pleural effusion. Troponin was 0.012. Hemoglobin 13.9 and platelet count 149 otherwise metabolic panel essentially normal. Magnesium 2.0, phosphorus 3.7. ProBNP 2320. Urinalysis negative for infection. She was given 1 dose of Reglan. She was started on IV fluids and there is concern the patient had elevated BNP and was in heart failure as she presented with a pulse ox of 88% on room air with repeat of 98% on 2 L nasal cannula. Patient was complaining of headache and nausea and took a dose of Benadryl. Patient was then transferred to [facility]. Patient is status post IV Lasix. She states she did have some lower extremity edema which is resolved. Patient's main concern is a headache which she has had prolonged period of time and had previous workup with Dr. Marily Dye and referred to Dr. Jasson Park. Dr. Jasson Rendon wanted her to go to [facility] but she did not want to do further workup. Patient has had worsening headache for the past month and significantly worse this week along with nausea. 04/01: Patient denies any new complaints. She states her headache is improved from yesterday. She feels that it may be coming from her neck is ice to the ne ck area seems to help. She has had no palpitations, lightheadedness or dizziness, no shortness of breath or chest pain. Heart rate has been running in the 50s during the night currently at 70, blood pressure 96/54. Lab work revealed d-dimer 0.62. BUN 20 creatinine 0.66, hemoglobin 14.6. AST 37 and ALT 51, alkaline phosphatase 76. TSH 5.260 and free T4 1.05. Echocardiogram reveals EF of 45-50% with moderate concentric left ventricle hypertrophy, [id number]-[id number] mitral regurgitation, mild tricuspid regurgitation. Physical examination: Gen: This is a thin 79-year-old female. She is sitting on the edge of the bed and appears to be comfortable and in no acute distress. VS: Afebrile, heart rate 63, blood pressure 133/86, pulse ox 97% on room air HEENT: Head is atraumatic, normocephalic. Pupils equal, round. Sclerae is anicteric. NECK: Supple. No JVD. No lymphadenopathy. No thyromegaly. LUNGS: Clear to auscultation. No wheezes or rhonchi. No intercostal retractions. HEART: Regular rate and rhythm. No murmur. ABDOMEN: Soft. Bowel sounds are present. No masses. No tenderness. EXTREMITIES: No pedal edema. No calf tenderness. Dorsalis pedis +2 bilaterally. NEUROLOGICAL: Patient is awake, alert and oriented x3. Cranial nerves 2 through 12 are grossly intact. Assessment: No overt heart failure heart failure New diagnosis of atrial fibrillation, rate controlled Headache and nausea, chronic Gastroesophageal reflux disease Plan: The patient is cleared for discharge home and will hold metoprolol Continue eliquis 5 mg twice daily Nurse practitioner note has been reviewed, I agree with documented findings and plan of care. Patient was seen and examined. Objective - Vital Signs Vital signs: Vital Signs Temp 98.0 F 04/01/20 03:43 Pulse 55 L 04/01/20 03:43 Resp 18 04/01/20 03:43 BP 102/66 04/01/20 03:43 Pulse Ox 97 04/01/20 03:43 Intake & Output 03/31/20 04/01/20 04/01/20 18:59 06:59 18:59 Intake Total 500 Balance 500 Weight 63.8 kg 63.7 kg Intake: Oral 500 Other: Voiding Method Toilet Toilet # Voids 3 3 - Labs CBC & Chem 7: 04/01/20 06:11 04/01/20 06:11 Labs: Abnormal Lab Results - Last 24 Hours (Table) 03/31/20 03/31/20 04/01/20 Range/Units 10:17 10:17 06:11 Hct 46.1 H (34.0-46.0) % MCV 106.3 H (80.0-100.0) fL Lymphocytes # 0.9 L (1.0-4.8) k/uL D-Dimer 0.62 H (<0.60) mg/L FEU Chloride 95 L (98-107) mmol/L Carbon Dioxide 38 H (22-30) mmol/L BUN (7-17) mg/dL Glucose 105 H (74-99) mg/dL AST 49 H (14-36) U/L ALT 66 H (4-34) U/L TSH 5.260 H (0.465-4.680) mIU/L 04/01/20 Range/Units 06:11 Hct (34.0-46.0) % MCV (80.0-100.0) fL Lymphocytes # (1.0-4.8) k/uL D-Dimer (<0.60) mg/L FEU Chloride 97 L (98-107) mmol/L Carbon Dioxide 35 H (22-30) mmol/L BUN 20 H (7-17) mg/dL Glucose (74-99) mg/dL AST 37 H (14-36) U/L ALT 51 H (4-34) U/L TSH (0.465-4.680) mIU/L
[2020-04-02] MEDS ORDERED: LEVOTHYROXINE 137 MCG TAB PO SCH (06:30)
--- NOTE | 2020-04-03 08:23 | CDI ---
Documentation Clarification Form Date: 04/03/20 From: Shayla Maciel CCS Phone: If you have a question about this query, please contact Danay Taveras, Call Center Team Leader at [phone] between 8am and 5pm. Admit Date: 03/30/20 Discharge Date:04/01/20 Patient Name: Oxana Wise Visit Number: [id number] ATTENTION: The Clinical Documentation Specialists (CDI) and [facility] Coding Staff appreciate your assistance in clarifying documentation. Please respond to the clarification below the line at the bottom and electronically sign. The CDI & [facility] Coding staff will review the response and follow-up if needed. Please note: Queries are made part of the Legal Health Record. If you have any questions, please contact the author of this message via ITS. Dear Dr. Dale, Atrial Fibrillation is documented in the Consult, H&P, PNs, DS. History/Risk Factors: CHF, Anxiety, Valve disease Clinical Indicators: Afib EKG/telemetry: Atrial flutter with variable AV block Treatment: Eliquis 5 mg PO BID Consults: Maranda In your professional opinion, can you please clarify the type of Atrial Fibrillation, if known? Chronic/Permanent Paroxysmal Persistent Other, please specify Unable to determine persistent atrial fibrillation MTDD
== END 2020-04-01 12:16 | disposition home or self-care (01) | DRG 292 ==
LOC: EC 20:30 → 3SCARD 20:58
PROVIDERS: ADMIT Internal Medicine; ATTEND Internal Medicine
DX: I50.33 Acute on chronic diastolic (congestive) heart failure (principal); I48.92 Unspecified atrial flutter; I48.19 Other persistent atrial fibrillation; Z11.59 Encounter for screening for other viral diseases; Z79.01 Long term (current) use of anticoagulants; F41.9 Anxiety disorder, unspecified; K21.9 Gastro-esophageal reflux disease without esophagitis; M19.90 Unspecified osteoarthritis, unspecified site; E03.9 Hypothyroidism, unspecified; F32.9 Major depressive disorder, single episode, unspecified; R74.8 Abnormal levels of other serum enzymes; R11.2 Nausea with vomiting, unspecified; R51 Headache; I08.1 Rheumatic disorders of both mitral and tricuspid valves; K59.09 Other constipation; R49.0 Dysphonia; Z71.3 Dietary counseling and surveillance; Z79.890 Hormone replacement therapy; Z79.1 Long term (current) use of non-steroidal anti-inflammatories (NSAID); Z79.899 Other long term (current) drug therapy; Z98.890 Other specified postprocedural states; Z88.8 Allergy status to other drugs, medicaments and biological substances; Z82.49 Family history of ischemic heart disease and other diseases of the circulatory system; Z80.1 Family history of malignant neoplasm of trachea, bronchus and lung
CPT/HCPCS: 71045; 80053; 83880; 84439; 84443; 84484; 85025; 85027; 85379; 93306; 96374; 96375; 99285

== ENCOUNTER 2020-04-25 06:30 | Day surgery (SDC) | payer MEDICARE, BC ==
[2020-04-20 12:07] VITALS: BMI 21.9
[~2020-04-25 06:30] MED LIST changes: -LIDOCAINE 1% 20 ML VIAL (10MG/ML) FOR IV START INTRADERMA PRN; +SODIUM CHLORIDE 0.9% 1,000 ML IV SCH
[2020-04-25 07:10] VITALS: BP 155/97; PULSE 53; RESP 16; TEMP 98.3
[2020-04-25] MEDS ORDERED: SODIUM CHLORIDE 0.9% 500 ML 500 ML IV ONE (07:10)
== END 2020-04-25 07:50 | disposition home or self-care (01) ==
LOC: CATHCVL 06:30
PROVIDERS: ATTEND Internal Medicine Cardiovascular Disease
DX: I48.19 Other persistent atrial fibrillation (principal); I50.31 Acute diastolic (congestive) heart failure; R07.89 Other chest pain; Z79.01 Long term (current) use of anticoagulants; Z79.890 Hormone replacement therapy; Z79.899 Other long term (current) drug therapy; Z88.8 Allergy status to other drugs, medicaments and biological substances; Z53.8 Procedure and treatment not carried out for other reasons
CPT/HCPCS: 93005

== ENCOUNTER 2023-01-05 08:23 | Day surgery (SDC) | payer MEDICARE, BC ==
[~2023-01-05 08:23] MED LIST changes: -LACTATED RINGERS 1,000 ML IV SCH
[2023-01-05] MEDS ORDERED: SODIUM CHLORIDE 0.9% 500 ML IV ONE (08:53)
[2023-01-05 08:59] VITALS: RESP 16; TEMP 97.3
[2023-01-05 09:49] VITALS: BP 133/79; PULSE 64
--- NOTE | 2023-01-29 10:51 | P.EPPROC ---
- EP Procedure Note Electrophysiology Procedure Note: Diagnosis Recurrent syncope Twelve-lead EKG shows atrial fibrillation with heart rates in the 70s, narrow QRS Tilt table test per protocol Baseline blood pressure 171/92 mmHg, Baseline heart rate 83 beats a minute Patient was tilted upright at an angle of 70 per protocol There was a gradual decline in her blood pressure with stable heart rates Lowest blood pressure recorded was 121/77 mmHg She complained of nausea but no syncope noted Impression Likely dysautonomia/orthostatic hypotension syndrome No symptoms of syncope there was a gradual progressive decline in her blood pressure during the test
== END 2023-01-05 13:00 | disposition home or self-care (01) ==
LOC: CATHEP 08:23
PROVIDERS: ATTEND Internal Medicine Clinical Cardiac Electrophysiology
DX: R55 Syncope and collapse (principal)
CPT/HCPCS: 93660